=== PATIENT | female | born 1930 | race African-American/Black ===

== ENCOUNTER 2019-04-11 14:11 | Observation (INO) ==
[2019-04-11] MEDS ORDERED: ACETAMINOPHEN 325 MG TABLET PO PRN (18:03)
[2019-04-11] MEDS ORDERED: DEXTROSE 50% 25 GM/50 ML VIAL IV PRN (18:03)
[2019-04-11] MEDS ORDERED: GLUCAGON 1 MG VIAL IM PRN (18:03)
[2019-04-11] MEDS ORDERED: ONDANSETRON 4 MG/2 ML VIAL IV PRN (18:03)
[2019-04-11] MEDS: AZITHROMYCIN 250 MG TABLET PO SCH (18:23)
[2019-04-11] MEDS ORDERED: cefTRIAXone 2,000 MG in SYRINGE 1 EACH IV SCH (18:30)
[2019-04-11] MEDS ORDERED: cefTRIAXone 1,000 MG in SYRINGE 1 EACH IV ONE (18:30)
[2019-04-11 18:52] LABS: Basophils % 0.2 % (0.0-0.8); Eosinophils # 0.2 10*3/uL (0.0-0.87); Eosinophils % 1.8 % (0.00-10.9); Hematocrit 33.6 VOL% (35.7-47.0); Hemoglobin 11.2 GM/DL (12.0-16.0); Immature Granulocytes % 0.6 %; Immature Granulocytes Absolute 0.07 #; Lymphocytes # 1.8 10*3/uL (1.4-4.0); Mean Corpuscular HGB Conc 33.3 GM/DL (32-36); Mean Corpuscular Volume 95.5 FL (87-102); Mean Platelet Volume 9.4 FL (9.6-12.0); Monocytes % 5.9 % (1.7-12.7); Neutrophils % 77.5 % (38.7-73.9); Platelet Count 174 T/CUMM (130-400); Red Blood Count 3.52 MC/CUMM (3.8-5.5); Red Cell Distribution Width 13.1 % (9.3-17.3); White Blood Count 12.6 T/CUMM (4-12)
[2019-04-11] MEDS ORDERED: ALBUTEROL 2.5 MG/3 ML NEB RESP TX SCH (19:00)
[2019-04-11] MEDS: ALBUTEROL/IPRATROPIUM 3 ML NEB RESP TX SCH (19:06)
[2019-04-11 19:10] LABS: Osmolality,Calculated 280.8 MOS/KG (273-304)
[2019-04-11] MEDS: INSULIN REGULAR 100 UNIT/ML SUBCUT SCH (21:45)
[2019-04-12] MEDS: ALBUTEROL/IPRATROPIUM 3 ML NEB RESP TX SCH ×4 (00:29→19:14)
[2019-04-12 00:55] LABS: Basophils % 0.1 % (0.0-0.8); Eosinophils # 0.2 10*3/uL (0.0-0.87); Eosinophils % 2.7 % (0.00-10.9); Hematocrit 35.3 VOL% (35.7-47.0); Hemoglobin 11.9 GM/DL (12.0-16.0); Immature Granulocytes % 0.6 %; Immature Granulocytes Absolute 0.05 #; Lymphocytes % 11.7 % (21.3-54.2); Mean Corpuscular HGB Conc 33.7 GM/DL (32-36); Mean Corpuscular Volume 94.9 FL (87-102); Mean Platelet Volume 9.7 FL (9.6-12.0); Monocytes % 8.1 % (1.7-12.7); Neutrophils % 76.8 % (38.7-73.9); Platelet Count 171 T/CUMM (130-400); Red Blood Count 3.72 MC/CUMM (3.8-5.5); Red Cell Distribution Width 13.2 % (9.3-17.3); White Blood Count 8.4 T/CUMM (4-12)
[2019-04-12 01:18] LABS: Calcium 9.2 MG/DL (8.5-10.1); Osmolality,Calculated 281.5 MOS/KG (273-304)
[2019-04-12] MEDS: PANTOPRAZOLE 40 MG TABLET PO SCH (08:51)
[2019-04-12] MEDS: ENOXAPARIN 30 MG/0.3 ML SYRINGE SUBCUT SCH (08:51)
[2019-04-12] MEDS: FUROSEMIDE 40 MG/4 ML VIAL IV SCH (08:52)
[2019-04-12] MEDS: INSULIN REGULAR 100 UNIT/ML SUBCUT SCH ×4 (08:52→21:52)
[2019-04-12] MEDS ORDERED: LISINOPRIL 10 MG TABLET PO SCH (11:30)
[2019-04-12] MEDS: POLYETHYLENE GLYCOL POWDER 17 GM PACK PO SCH (11:47)
[2019-04-12] MEDS: POTASSIUM CHLORIDE 20 MEQ TABLET PO SCH (11:49)
[2019-04-12] MEDS: SIMVASTATIN 10 MG TABLET PO SCH (11:49)
[2019-04-12] MEDS: DILTIAZEM CD 240 MG CAPSULE PO SCH (11:50)
[2019-04-12] MEDS: GABAPENTIN 300 MG CAPSULE PO SCH (11:50)
[2019-04-12] MEDS: MAGNESIUM CHLORIDE 64 MG TABLET PO SCH ×2 (11:50→21:51)
[2019-04-12] MEDS: ASPIRIN EC 81 MG TABLET PO SCH (11:50)
[2019-04-12] MEDS: METOPROLOL TARTRATE 25 MG TABLET PO SCH ×2 (15:25→21:50)
[2019-04-12] MEDS ORDERED: NITROGLYCERIN SL 0.4 MG TABLET SL PRN (17:43)
[2019-04-12] MEDS ORDERED: MORPHINE 4 MG/1 ML VIAL IV PRN (17:44)
[2019-04-12] MEDS: AZITHROMYCIN 250 MG TABLET PO SCH (17:58)
[2019-04-12] MEDS ORDERED: cefTRIAXone 2,000 MG in SYRINGE 1 EACH IV SCH (18:00)
[2019-04-13] MEDS: ALBUTEROL/IPRATROPIUM 3 ML NEB RESP TX SCH ×2 (00:09→07:45)
[2019-04-13 08:09] VITALS: BP 97/43
[2019-04-13 08:16] LABS: Troponin I 0.606 NG/ML (0.00-0.045)
[2019-04-13] MEDS ORDERED: AMITRIPTYLINE 25 MG TABLET PO SCH (09:00)
[2019-04-13] MEDS: ENOXAPARIN 30 MG/0.3 ML SYRINGE SUBCUT SCH (09:44)
[2019-04-13] MEDS: POLYETHYLENE GLYCOL POWDER 17 GM PACK PO SCH (09:44)
[2019-04-13] MEDS: ASPIRIN EC 81 MG TABLET PO SCH (09:45)
[2019-04-13] MEDS: DILTIAZEM CD 240 MG CAPSULE PO SCH (09:45)
[2019-04-13] MEDS: MAGNESIUM CHLORIDE 64 MG TABLET PO SCH (09:45)
[2019-04-13] MEDS: PANTOPRAZOLE 40 MG TABLET PO SCH (09:45)
[2019-04-13] MEDS: POTASSIUM CHLORIDE 20 MEQ TABLET PO SCH (09:45)
[2019-04-13] MEDS: METOPROLOL TARTRATE 25 MG TABLET PO SCH (09:46)
[2019-04-13] MEDS: GABAPENTIN 300 MG CAPSULE PO SCH (09:46)
[2019-04-13] MEDS: SIMVASTATIN 10 MG TABLET PO SCH (09:46)
[2019-04-13] MEDS: INSULIN REGULAR 100 UNIT/ML SUBCUT SCH (09:47)
[2019-04-13] MEDS: FUROSEMIDE 40 MG/4 ML VIAL IV SCH (09:48)
== END 2019-04-13 11:27 | disposition home or self-care (01) ==
LOC: N.TELES 16:50 → INTOOBSV 16:50 → SUATTDRO 16:50
PROVIDERS: ADMIT Internal Medicine; ATTEND Internal Medicine Geriatric Medicine